=== PATIENT | male | born 1975 | race Caucasian/White ===

== ENCOUNTER → 2016-06-07 | Outpatient (CLI) | payer MEDICARE, MEDICAID | LOC: RAD 14:29 | PROVIDERS: ATTEND Pain Medicine Pain Medicine | DX: M25.552 Pain in left hip (principal); M25.512 Pain in left shoulder; M54.5 Low back pain | CPT/HCPCS: 72110 ==

== ENCOUNTER 2018-01-07 11:30 | Emergency (ER) | payer MEDICARE, MEDICAID ==
--- NOTE | 2018-01-07 15:07 | ER Document Report ---
ED Skin Rash/Insect Bite/Abscs - General Chief Complaint: Abscess Stated Complaint: HOLE IN CHEST Time Seen by Provider: 01/07/18 13:12 Mode of Arrival: Ambulatory Information source: Patient Notes: Patient is a 42-year-old morbidly obese male comes emergency room complaining of "a hole in my chest". Patient states that it started approximately 2 weeks ago it is located right on the right side of his chest right at the nipple line. At the sternal border. Patient states it started as little pimple and progressively get bigger into a boil and then he got really big and it ended up opening up and leaking out a blackish kind of material. He did state that it was a little bit on the bad foul-smelling. That opened up this morning and has drained until he got to the emergency room. He denies any fever denies any other symptoms. TRAVEL OUTSIDE OF THE [place] IN LAST 30 DAYS: No - HPI Patient complains to provider of: Skin rash/lesion, Other Onset: Other - 2 weeks ago Onset/Duration: Gradual, Persistent, Better Quality of pain: Achy Severity: Moderate Pain Level: 3 Skin Character: Abscess, Erythema Skin Temperature: Warm Quality of rash: Painful Identify cause: No - Think may be it was an infected hair. Exacerbated by: Denies Relieved by: Other - The pus coming out Similar symptoms previously: No Recently seen / treated by doctor: No - Related Data Allergies/Adverse Reactions: No Known Allergies Allergy (Verified 01/07/18 11:40) Past Medical History - General Information source: Patient - Social History Smoking Status: Current Every Day Smoker Cigarette use (# per day): Yes - 1 pack/day Chew tobacco use (# tins/day): No Smoking Education Provided: Yes Frequency of alcohol use: Occasional Drug Abuse: None Family History: Reviewed & Not Pertinent, Arthritis, CAD, DM, Hyperlipidemia, Hypertension, Malignancy. denies: COPD, CVA, Thyroid Disfunction Patient has suicidal ideation: No Patient has homicidal ideation: No - Past Medical History Cardiac Medical History: Reports: Hx Hypertension Denies: Hx Hypercholesterolemia Pulmonary Medical History: Reports: Hx Asthma, Hx Bronchitis Endocrine Medical History: Reports: Hx Diabetes Mellitus Type 2 Renal/ Medical History: Denies: Hx Peritoneal Dialysis Musculoskeletal Medical History: Reports Hx Arthritis, Reports Hx Musculoskeletal Deformity, Reports Hx Musculoskeletal Trauma Psychiatric Medical History: Reports: Hx Anxiety, Hx Depression Traumatic Medical History: Reports: Hx Fractures - ankle - Immunizations Immunizations up to date: Yes Hx Diphtheria, Pertussis, Tetanus Vaccination: Yes - 2014 Review of Systems - Review of Systems Constitutional: No symptoms reported EENT: No symptoms reported Cardiovascular: No symptoms reported Respiratory: No symptoms reported Gastrointestinal: No symptoms reported Genitourinary: No symptoms reported Male Genitourinary: No symptoms reported Musculoskeletal: No symptoms reported Skin: See HPI, Lumps, Other - Open abscess Hematologic/Lymphatic: No symptoms reported Neurological/Psychological: No symptoms reported Physical Exam - Vital signs Vitals: Temp Pulse Resp BP Pulse Ox 97.7 F 103 H 20 143/76 H 97 01/07/18 11:44 01/07/18 11:44 01/07/18 11:44 01/07/18 11:44 01/07/18 11:44 Interpretation: Hypertensive, Tachycardic - Notes Notes: PHYSICAL EXAMINATION: GENERAL: Patient is a 42-year-old morbidly obese male who is in no apparent distress. He is well-nourished and well-developed. HEAD: Atraumatic, normocephalic. EYES: Pupils equal round and reactive to light, extraocular movements intact, sclera anicteric, conjunctiva are normal. ENT: Nares patent, oropharynx clear without exudates. Moist mucous membranes. NECK: Normal range of motion, supple without lymphadenopathy LUNGS: Breath sounds clear to auscultation bilaterally and equal. No wheezes rales or rhonchi. HEART: Regular rate and rhythm without murmurs ABDOMEN: Soft, nontender, nondistended abdomen. No guarding, no rebound. No masses appreciated. Musculoskeletal: Normal range of motion, no pitting or edema. No cyanosis. NEUROLOGICAL: Cranial nerves grossly intact. Normal speech, normal gait. Normal sensory, motor exams PSYCH: Normal mood, normal affect. SKIN: Warm, Dry examination of patient's area of concern. Shows her to be a 2 cm area that is tender and feels hollow. In the center of that area is a 0.5 cm opening that is round. It apparently is where there had been an infected hair and when the abscess got to a point of full tension the plug popped up on that and patient who is pus from this area. This appears to be where the head of the abscess was at. The surrounding area is moderately erythematous and extends on either side of this 2 cm. So the total width of the area that when palpated feels hollow is approximately 4 cm. Further examination shows that with pressure applied to either side of this lesion there is no more drainage that can be expressed by applying pressure. The area looks clean and non- fluctuant anymore. Course - Re-evaluation Re-evalutation: 01/07/18 15:08 On examination patient basically fixed himself. The abscess that appeared to be approximately 4 cm from endpoint to endpoint and 2 cm from the middle of ruptured follicle shows no more drainage.. Patient does not have any more drainage and pain is limited at this time. He feels much better - Vital Signs Vital signs: Temp Pulse Resp BP Pulse Ox 97.7 F 103 H 20 143/76 H 97 01/07/18 11:44 01/07/18 11:44 01/07/18 11:44 01/07/18 11:44 01/07/18 11:44 - Laboratory Laboratory results interpreted by me: 01/07/18 14:41 POC Glucose 128 H Discharge - Discharge Clinical Impression: Abscess Condition: Stable Instructions: Abscess ([facility]), Cephalexin ([facility]), Clindamycin ([facility]) Additional Instructions: Home continue to use warm moist compresses. This is a rag just as warm as you can stand it from the sink do not put in a microwave. Do not boil at no pain. Continue with the compresses until the hole has closed completely. Avoid pools , whirlpools, [place] or [place] until the hole is closed completely. Take all of the antibiotics. Should you have any concerns or problems should you spike a fever or should the abscess return please return to ER for recheck. Prescriptions: Cephalexin Monohydrate [Keflex 500 mg Capsule] 500 mg PO Q6H 7 Days #28 capsule Clindamycin HCl [Cleocin 300 mg Capsule] 300 mg PO QID 10 Days #40 capsule Referrals: JUNE BEACH PA [Primary Care Provider] - Follow up as needed
[2018-01-07 15:45] VITALS: BP 136/86
== END 2018-01-07 15:50 | disposition home or self-care (01) ==
LOC: ER 11:30
DX: L02.213 Cutaneous abscess of chest wall (principal); E66.01 Morbid (severe) obesity due to excess calories; F17.210 Nicotine dependence, cigarettes, uncomplicated; E11.9 Type 2 diabetes mellitus without complications; I10 Essential (primary) hypertension
CPT/HCPCS: 82962; 99283